=== PATIENT | male | born 1950 | race Caucasian/White ===

== ENCOUNTER → 2016-10-29 | Outpatient (CLI) | payer BC, MEDICARE ==
--- NOTE | 2016-10-29 14:27 | RAD ---
CT of the chest without contrast, 10/29/2016: History: Heavy smoking history, lung screening Noncontrast scans were obtained with multiplanar reconstructions produced. There is a small irregular subpleural density in the posterior aspect of the left lower lobe. It measures 7 mm. It is part solid and noncalcified. It is best seen on image 386 of series #5. It was present on the 04/27/2016 CT abdomen study. It is more clearly defined on today's thinner slices, however, it shows no definite interval change. There are several small linear pleural-parenchymal opacities in the apices compatible with scarring. There are a few other scattered linear opacities in both lungs also compatible with scars. A calcified granuloma is present in the right lower lobe. No significant pulmonary consolidation is seen. There is no evidence of pleural fluid. There is calcific plaquing of the thoracic aorta and its branches without evidence of aneurysm. Moderate scattered coronary artery calcifications are noted. No mediastinal adenopathy is delineated. Moderate scattered spurs are present in the spine. IMPRESSION: 1. Unchanged part solid subpleural nodule in the left lower lobe as described above. CT follow-up in one year is suggested to confirm stability. 2. Mild scattered pleural-parenchymal scars. 3. Calcific plaquing of the aorta and coronary arteries. PQRS Compliance Statement: One or more of the following individualized dose reduction techniques were utilized for this examination: 1. Automated exposure control 2. Adjustment of the mA and/or kV according to patient size 3. Use of iterative reconstruction technique
== END | disposition home or self-care (01) ==
LOC: CT 09:56
PROVIDERS: ATTEND Specialist
DX: I25.10 Atherosclerotic heart disease of native coronary artery without angina pectoris (principal); F17.218 Nicotine dependence, cigarettes, with other nicotine-induced disorders
CPT/HCPCS: 71250

== ENCOUNTER → 2016-12-14 | Outpatient (CLI) | payer BC, MEDICARE ==
--- NOTE | 2016-12-14 17:10 | RAD ---
Right RIBS with chest, 3 views, 12/14/2016: History: Rib pain There is an old healed fracture of the posterolateral aspect of the right eighth rib. No acute rib fracture is seen. There are moderate scattered spurs in the spine. There is no evidence of underlying pneumothorax, hemothorax or pulmonary infiltrate. The heart size is normal. IMPRESSION: No acute right rib abnormality is detected.
== END | disposition home or self-care (01) ==
LOC: RAD 16:34
PROVIDERS: ATTEND Physician Assistant
DX: S23.41XA Sprain of ribs, initial encounter (principal); X58.XXXA Exposure to other specified factors, initial encounter; Y93.9 Activity, unspecified; Y92.89 Other specified places as the place of occurrence of the external cause; Y99.8 Other external cause status
CPT/HCPCS: 71101

== ENCOUNTER → 2017-12-27 | Outpatient (CLI) | payer BC ==
[~2017-12-27] MED LIST: IOHEXOL 300 MG/ML 75 ML VIAL. IV ONE
--- NOTE | 2017-12-27 12:00 | RAD ---
EXAM: Chest CT with intravenous contrast. HISTORY: Right clavicle mass. TECHNIQUE: Computed tomographic images of the chest were obtained following the administration of 75 cc Omnipaque 300 intravenous contrast. Multiplanar reformatting was performed. *One or more of the following individualized dose reduction techniques were utilized for this examination: 1. Automated exposure control. 2. Adjustment of the mA and/or kV according to patient size. 3. Use of iterative reconstruction technique. COMPARISON: 10/29/2016. FINDINGS: There is no suspicious lesion at the site of palpable concern along the superior medial aspect of the right clavicle, demarcated by a metallic be for the exam. The visualized submandibular and thyroid glands are unremarkable. There is no lymphadenopathy within the visualized portions of the neck. There is partially calcified atherosclerotic plaque within the left carotid bulb and proximal internal carotid artery, without significant stenosis. The aorta is normal in caliber. There is a standard aortic arch branching pattern. There is partially calcified atherosclerotic plaque within the arch great vessels. No severe stenosis is seen. The heart is normal in size. There is coronary artery atherosclerosis. There is no mediastinal or hilar lymphadenopathy. There is mild emphysema. There is no pleural effusion or pneumothorax. There is bilateral posterior dependent atelectasis. There is a rounded nodular opacity within the posterior left lower lobe measuring 9 mm, possibly due to subsegmental atelectasis. There is slight bilateral central bronchial wall thickening, suggesting the sequela of bronchitis. The upper abdomen is unremarkable. There is multilevel degenerative change within the cervical and thoracic spine. There are multiple endplate Schmorl's nodes. There is no acute osseous finding. IMPRESSION: 1. No suspicious finding at the site of palpable concern along the superior medial right clavicle. 2. Mild pulmonary emphysema. 3. 9 mm rounded nodular opacity within the posterior left lower lobe, slightly increased compared the prior study. The slow interval change favors a benign etiology such as subsegmental atelectasis. However, short-term follow-up in approximately 6 months is recommended to confirm stability given the slight interval change. Electronically signed by: Angeli Anders MD (12/27/2017 11:57 AM) [place] [id number]
== END | disposition home or self-care (01) ==
LOC: CT 10:14
PROVIDERS: ATTEND Specialist
DX: J43.8 Other emphysema (principal); M51.44 Schmorl's nodes, thoracic region; I25.10 Atherosclerotic heart disease of native coronary artery without angina pectoris; M16.0 Bilateral primary osteoarthritis of hip; F17.218 Nicotine dependence, cigarettes, with other nicotine-induced disorders; R91.8 Other nonspecific abnormal finding of lung field
CPT/HCPCS: 71260; Q9967

== ENCOUNTER → 2018-08-22 | Outpatient (CLI) | payer BC ==
--- NOTE | 2018-08-23 10:26 | RAD ---
Three-view acute abdominal series. HISTORY: Abdominal pain 3 views were taken for an acute abdominal series. There is an old right rib fracture. Lungs are free of infiltrates. Heart is normal in size. There is no free air on the upright view of the abdomen or abnormal air-fluid levels. There is mild stool in the colon. There is no bowel obstruction. Small bowel pattern is normal. There are no abnormal calcifications. IMPRESSION: 1. No acute infiltrates. 2. No bowel obstruction or acute finding in the abdomen. Electronically signed by: Azar Salomon MD (08/23/2018 10:23 AM) [id number]
== END | disposition home or self-care (01) ==
LOC: DXRAD 17:01
PROVIDERS: ATTEND Physician Assistant
DX: R10.84 Generalized abdominal pain (principal)
CPT/HCPCS: 74022

== ENCOUNTER → 2019-09-25 | Outpatient (CLI) | payer BC, MEDICARE ==
--- NOTE | 2019-09-25 16:16 | RAD ---
CT ABDOMEN PELVIS WO CONTRAST INDICATION: Reason: HEMATURIA, LOWER ABDOMINAL PAIN / Spl. Instructions: / History: EXAM: Noncontrast CT of the abdomen and pelvis. Coronal and sagittal reformatted images were performed. PQRS compliance statement: One or more of the following individualized dose reduction techniques were utilized for this examination: 1. Automated exposure control 2. Adjustment of the mA and/or kV according to patient size 3. Use of iterative reconstruction technique COMPARISON: 04/27/2016 FINDINGS: Lower chest: The visualized lower lungs are aerated. No pleural or pericardial effusion. ABDOMEN: Liver: The noncontrast liver is homogeneous in attenuation. Gallbladder and biliary: Normal gallbladder without radiopaque stone. Normal caliber bile ducts. Spleen: Normal spleen. Pancreas: The noncontrast pancreas is homogeneous in attenuation without peripancreatic inflammatory changes. Adrenal glands: Normal adrenal glands. Kidneys and ureters: No opaque urinary calculi. Normal kidneys and ureters. GI tract: The stomach is decompressed and poorly evaluated. Extensive colonic diverticulosis. Wall thickening of the sigmoid colon adjacent to the bladder. Normal appendix. Vascular structures: Mild aortoiliac atherosclerotic disease Lymph nodes: No lymphadenopathy in the abdomen or pelvis. PELVIS: Genitourinary system: Significant bladder wall thickening and extensive surrounding inflammation. Along the posterior aspect of the bladder between the bladder and the sigmoid colon is a structure with low central attenuation measuring 2.8 x 2.0 x 2.4 cm. Enlarged prostate measures 5.1 cm transverse. SKELETAL STRUCTURES AND SOFT TISSUES: Degenerative changes of the spine IMPRESSION: Significant bladder wall thickening with extensive surrounding inflammation, likely representing cystitis. There is a 2.8 cm low central attenuation structure along the posterior aspect of the bladder which may represent an abscess, although neoplasm would be difficult to exclude. Wall thickening of the adjacent sigmoid colon is probably reactive. Electronically signed by: Fidel Lockwood MD (09/25/2019 4:13 PM) [id number]
== END | disposition home or self-care (01) ==
LOC: CT 15:13
PROVIDERS: ATTEND Physician Assistant
DX: N40.1 Benign prostatic hyperplasia with lower urinary tract symptoms (principal); N32.89 Other specified disorders of bladder; K57.30 Diverticulosis of large intestine without perforation or abscess without bleeding; I70.0 Atherosclerosis of aorta
CPT/HCPCS: 74176

== ENCOUNTER → 2020-02-15 | Outpatient (CLI) | payer BC ==
--- NOTE | 2020-02-15 12:29 | RAD ---
EXAM: 3 views left knee DATE: 02/15/2020 12:00 AM INDICATION: Reason: LEFT KNEE PAIN, ARTHRITIS / Spl. Instructions: / History: COMPARISON: No Prior FINDINGS: No acute fracture or dislocation. Moderate medial compartment joint space narrowing with tricompartmental osteophytes. Moderate left knee joint effusion. IMPRESSION: 1. No evidence of acute fracture or dislocation. 2. Moderate left knee joint osteoarthritis, medial compartment predominance. Electronically signed by: Tony Simmons MD (02/15/2020 12:26 PM) [id number]
== END ==
LOC: RAD 11:58
PROVIDERS: ATTEND Internal Medicine Rheumatology
DX: M17.12 Unilateral primary osteoarthritis, left knee (principal); M25.762 Osteophyte, left knee; M25.462 Effusion, left knee
CPT/HCPCS: 73562

== ENCOUNTER → 2020-09-29 | Outpatient (CLI) | payer BC ==
[~2020-09-29] VITALS: Ht 180.3 cm; Wt 70.3 kg
[2020-09-29] MEDS: SINCALIDE 1.41 MCG in IV NORMAL SALINE 50ML 30 ML IV ONE (11:30)
--- NOTE | 2020-09-29 13:23 | RAD ---
HEPATOBILIARY SCAN WITH EJECTION FRACTION 09/29/2020 1:19 PM History: Reason: / Spl. Instructions: / History: Procedure: Serial static images are obtained of the liver and biliary system in the frontal projectio n following IV administration of 5.5 mCi of Technetium 99m Choletec. After filling of the gallbladd er, 1.4 mcg of sincalide were infused over 30 minutes and dynamic imaging continued over this period. The gallbladder ejection fraction was calculated. Findings: There is prompt hepatic clearance of tracer from the blood pool. There is homogeneous distr ibution throughout the liver. The gallbladder ejection fraction measures 95% (normal gallbladder EF is 35% or greater). IMPRESSION: 1. The cystic duct and common bile duct are patent. Negative for acute cholecystitis. 2. The gallbladder ejection fraction is normal Electronically signed by: Angel Wolf MD (09/29/2020 1:20 PM) [id number]
--- NOTE | 2020-09-29 15:12 | RAD ---
US ABDOMEN COMPLETE History: Reason: EPIGASTRIC ABDOMINAL PAIN / Spl. Instructions: / History: Comparison: None. Technique: Transabdominal ultrasound images are obtained of the right upper quadrant. Findings: Liver is normal in echogenicity. Right hepatic lobe measures 15.3 cm. Portal flow is hepatopedal. No cholelithiasis. No gallbladder wall thickening or pericholecystic fluid. Common bile duct measures 4 mm in diameter. Visualized pancreas not well seen due to overlying bowel gas. The right kidney measures 10.2 x 4.4 x 3.4 cm. No hydronephrosis. The left kidney measures 10.8 x 4.6 x 4.6. The spleen is not well seen due to overlying structures. Visualized portions of the aorta and IVC have normal caliber. IMPRESSION: 1. Degraded evaluation, as described. 2. Otherwise, unremarkable right upper quadrant ultrasound. Electronically signed by: Neftaly Garcia DO (09/29/2020 3:10 PM) [facility]
== END ==
LOC: US 09:55
PROVIDERS: ATTEND Surgery
DX: R10.13 Epigastric pain (principal)
CPT/HCPCS: 76700; 78227; A9537; J2805

== ENCOUNTER → 2021-09-01 | Outpatient (CLI) | payer BC ==
--- NOTE | 2021-09-01 14:02 | RAD ---
CT of the chest without contrast: Clinical History: Reason: LUNG NODULE / Spl. Instructions: / History: . Axial helical images of the chest were obtained without contrast. COMPARISON: December 27, 2017 The pulmonary nodule in the left lung base is mildly larger. It measures 9 mm in diameter but now has spiculations. There is diffuse emphysematous changes in the lungs. There is coronary artery calcifications. There is no mediastinal or hilar lymphadenopathy. Mild loss of stature of multiple thoracic vertebral lesions was seen previously and could be old vert ebral body compression fractures. Impression: Pulmonary nodule in the left lung base abutting the pleura posteriorly. This is only slightly larger from 2018 and has mild spiculation. This could be benign or malignant. Consider a three-month follow- up CT versus PET/CT. PQRS Compliance Statement: One or more of the following individualized dose reduction techniques were utilized for this examinat ion: 1. Automated exposure control 2. Adjustment of the mA and/or kV according to patient size 3. Use of iterative reconstruction technique Electronically signed by: Collins Fisher III, MD (09/01/2021 2:00 PM) [facility]
== END ==
LOC: CT 11:15
PROVIDERS: ATTEND Specialist
DX: R91.1 Solitary pulmonary nodule (principal); J43.9 Emphysema, unspecified; I25.10 Atherosclerotic heart disease of native coronary artery without angina pectoris
CPT/HCPCS: 71250

== ENCOUNTER 2021-09-05 14:30 | Emergency (ER) | payer BC ==
[~2021-09-05] VITALS: Ht 180.3 cm; Wt 66.0 kg
[2021-09-05] MEDS ORDERED: IV NORMAL SALINE 1,000ML 1,000 ML IV SCH (14:45)
--- NOTE | 2021-09-05 14:45 | PHYS DOC ---
Adult General Chief Complaint Chief Complaint: ABDOMINAL PAIN [facility] Patient presents with complaint of abdominal pain x1 week. Patient with nausea but no vomiting. Patient denies any diarrhea or constipation. Patient denies any fevers or chills. Patient was seen in his primary care physician office and was sent to the emergency department for further evaluation. Patient does have a history of diverticulitis with abscess and need for admission last year Review of Systems Review of Systems Constitutional: Denies fever or chills [] Eyes: Denies change in visual acuity, redness, or eye pain [] HENT: Denies nasal congestion or sore throat [] Respiratory: Denies cough or shortness of breath [] Cardiovascular: No additional information not addressed in HPI [] GI: Abdominal pain, nausea, no vomiting : Denies dysuria or hematuria [] Musculoskeletal: Denies back pain or joint pain [] Integument: Denies rash or skin lesions [] Neurologic: Denies headache, focal weakness or sensory changes [] Endocrine: Denies polyuria or polydipsia [] All other systems were reviewed and found to be within normal limits, except as documented in this note. Allergies Allergies Allergies Coded Allergies Type Severity Reaction Last Updated Verified Penicillins Allergy Unknown 04/27/16 Yes Physical Exam Physical Exam Constitutional: Well developed, well nourished, no acute distress, non-toxic appearance. [] HENT: Normocephalic, atraumatic, bilateral external ears normal, oropharynx moist, no oral exudates, nose normal. [] Eyes: PERRLA, EOMI, conjunctiva normal, no discharge. [] Neck: Normal range of motion, no tenderness, supple, no stridor. [] Cardiovascular:Heart rate regular rhythm, no murmur [] Lungs & Thorax: Bilateral breath sounds clear to auscultation [] Abdomen: Soft, very minimal distention, mild diffuse tender palpation, no rebound no guarding Skin: Warm, dry, no erythema, no rash. [] Back: No tenderness, no CVA tenderness. [] Extremities: No tenderness, no cyanosis, no clubbing, ROM intact, no edema. [] Neurologic: Alert and oriented X 3, normal motor function, normal sensory function, no focal deficits noted. [] Psychologic: Affect normal, judgement normal, mood normal. [] EKG EKG [] Radiology/Procedures Radiology/Procedures [] Heart Score C/O Chest Pain: No Risk Factors: Risk Factors: DM, Current or recent (<one month) smoker, HTN, HLP, family history of CAD, obesity. Risk Scores: Risk Factors: DM, Current or recent (<one month) smoker, HTN, HLP, family history of CAD, obesity. Course & Med Decision Making Course & Med Decision Making Patient with abdominal pain x1 week. Patient will get labs and full work-up in the emergency department including CT imaging 1620-patient with work-up pursued, CT consistent with acute sigmoid diverticulitis with suspected perforation and possible early abscess. Patient's vital signs do remain stable in the emergency department. Patient will be initiated on IV antibiotics and will be [facility]. Patient does state a penicillin allergy although he has never had a reaction himself, he states his mother was allergic and therefore he is always just said that he was allergic. Family believes he has tolerated amoxicillin in the past. We will initiate Zosyn in the emergency department Dragon Disclaimer Dragon Disclaimer This electronic medical record was generated, in whole or in part, using a voice recognition dictation system. Departure Departure: Impression: Primary Impression: Acute diverticulitis Additional Impression: Diverticulitis of large intestine with perforation Disposition: 02 SHORT TERM HOSPITAL Admitting Physician: Other ([place]) Condition: STABLE Referrals: KAT SULLIVAN MD (PCP) Problem Qualifiers ALLYN DUARTE MD September 05, 2021 14:45
[2021-09-05] MEDS ORDERED: ONDANSETRON PF 4 MG/2 ML VIAL. IVP ONE (15:00)
[2021-09-05] MEDS ORDERED: IOHEXOL 300 MG/ML 75 ML VIAL. IV ONE (15:00)
[2021-09-05] MEDS: MORPHINE SULFATE 2 MG/ML DISP.SYRIN. IV/SQ PRN ×2 (15:05→15:28)
[2021-09-05 15:14] LABS: BASO # 0.1 x10^3/uL (0.0-0.2); BASO % 1 % (0-3); EOS # 0.2 x10^3/uL (0.0-0.7); EOS % 2 % (0-3); HEMATOCRIT 41.5 % (39.0-53.0); HEMOGLOBIN 13.9 g/dL (13.0-17.5); LYMPH # 0.9 x10^3/uL (1.0-4.8); LYMPH % 9 % (24-48); MEAN CORPUSCULAR HEMOGLOBIN 34 pg (25-35); MEAN CORPUSCULAR HGB CONC 34 g/dL (31-37); MEAN CORPUSCULAR VOLUME 101 fL (79-100); MONO # 1.1 x10^3/uL (0.0-1.1); MONO % 11 % (0-9); NEUT # 7.5 x10^3uL (1.8-7.7); NEUT % 78 % (31-73); PLATELET COUNT 243 x10^3/uL (140-400); RED BLOOD COUNT 4.09 x10^6/uL (4.30-5.70); RED CELL DISTRIBUTION WIDTH 12.9 % (11.5-14.5); WHITE BLOOD COUNT 9.7 x10^3/uL (4.0-11.0)
[2021-09-05 15:22] LABS: CALCIUM 9.1 mg/dL (8.5-10.1); CREATININE 0.9 mg/dL (0.7-1.3); GFR 83.4; POTASSIUM 4.1 mmol/L (3.5-5.1)
[2021-09-05 15:27] LABS: ALBUMIN 3.4 g/dL (3.4-5.0); ALBUMIN/GLOBULIN RATIO 0.8 (1.0-1.7); TOTAL BILIRUBIN 0.7 mg/dL (0.2-1.0); TOTAL PROTEIN 7.5 g/dL (6.4-8.2)
--- NOTE | 2021-09-05 16:04 | RAD ---
CT abdomen pelvis with contrast dated 09/05/2021. COMPARISON: 09/25/2019. INDICATION: Abdominal pain. TECHNIQUE: Continues axial imaging the M pelvis performed after the ministration of 75 cc Omnipaque 300. One or more of the following individualized dose reduction techniques were utilized for this examinat ion: 1. Automated exposure control 2. Adjustment of the mA and/or kV according to patient size 3. Use of iterative reconstruction technique FINDINGS: Limited images of lung bases are clear. Noncalcified nodular focus in the left lower lobe posteriorly on image 3 that measures 9 mm. Coronary artery calcifications. No pericardial effusion. Scattered diverticula throughout the colon. An area of wall thickening involving the sigmoid with per icolonic inflammatory changes. There are couple of small linear pockets of fluid that extends along t he posterior superior margin of the inflamed sigmoid, largest of which measures 4.1 x 1.3 cm, best se en on axial images 49 through 56. On the prior exam, the degree of wall thickening is similar, howeve r the previously described fluid collection along the inferior margin of the sigmoid has resolved. No gross pneumoperitoneum. No ascites or lymphadenopathy. The abdominal aorta normal in caliber. GI tract is otherwise normal in caliber. No additional areas of bowel wall thickening. Appendix is no t clearly seen. No inflammatory changes in the right lower quadrant. Liver and spleen are homogeneous. Pancreas, adrenal glands and kidneys are unremarkable. No hydroneph rosis. The gallbladder is surgically absent. Images the pelvis show nondistended urinary bladder. Prostate gland is mildly enlarged. No significan t free pelvic fluid. No pelvic adenopathy. Bone windows show no acute findings. Mild/moderate multilevel spondylosis. IMPRESSION: 1. Findings consistent with recurrent acute sigmoid diverticulitis. There are couple of curvilinear p ockets of fluid along the posterior superior margin of the inflamed sigmoid suggesting localized perf oration or early abscess or fistulous tract. Underlying mass cannot be excluded. Short-term follow-up CT or colonoscopy after treatment to ensure resolution. 2. Otherwise no acute findings. 3. Mild prostatomegaly. 4. Indeterminate small noncalcified pulmonary nodule in the left lower lobe, unchanged from prior citlali dy. Electronically signed by: Salas Moctezuma MD (09/05/2021 4:02 PM) [id number]
[2021-09-05] MEDS ORDERED: PIPERACILLIN/TAZOBACTAM 4.5 GM in IV NORMAL SALINE 50ML 50 ML IV ONE (16:30)
[2021-09-05 16:39] LABS: CLARITY,URINE CLEAR; COLOR,URINE YELLOW; GLUCOSE,URINE NEG (NEG)
[2021-09-05 16:40] LABS: BACTERIA,URINE MANY /HPF (0-FEW); NITRITE,URINE POS (NEG); RBC,URINE RARE /HPF (0-2)
[2021-09-05 16:41] LABS: SQUAMOUS EPITHELIAL CELL,UR OCC /LPF
[2021-09-05] MEDS ORDERED: PIPERACILLIN/TAZOBACTAM 4.5 GM VIAL IV ONE (16:55)
[2021-09-05] MEDS ORDERED: IV NORMAL SALINE 50ML 50 ML ONE (16:55)
[2021-09-05] MEDS ORDERED: HYDROmorphone PF 1 MG/ML DISP.SYRIN IVP ONE ×2 (17:00→19:30)
[2021-09-05 18:37] VITALS: BP 135/71
== END 2021-09-05 19:29 | disposition short-term general hospital (02) ==
LOC: ER 14:30
DX: K57.20 Diverticulitis of large intestine with perforation and abscess without bleeding (principal); Z20.822 Contact with and (suspected) exposure to COVID-19; Z88.0 Allergy status to penicillin
CPT/HCPCS: 36415; 74177; 80053; 81001; 83690; 85025; 87426; 96361; 96365; 96375; 96376; 99285; C9803; J1170; J2270; J2405; J2543; J7030; Q9967; U0003